=== PATIENT | female | born 1975 | race Caucasian/White ===

== ENCOUNTER → 2016-06-13 | Outpatient (CLI) | payer OTHER ==
--- NOTE | 2016-06-13 10:14 | DIAGNOSTIC IMAGING REPORT ---
PROCEDURE: US COMPLETE PELVIC W/TRANSVAG INDICATION: METRORRHAGIA, initial encounter TECHNIQUE: Transabdominal and endovaginal patino scale and color Doppler sonographic images of the female pelvis were obtained. COMPARISON: None. FINDINGS: TRANSABDOMINAL SCANS: Left adnexal cyst. Normal kidneys. TRANSVAGINAL SCANS: Retroverted uterus measures 9.6 x 5.1 x 5.7 cm. Normal myometrium. IUD in satisfactory position within the endometrial canal. Left ovary measures 3.7 x 2.7 x 3.2 cm with a 2.6 cm simple cyst. Right ovary measures 4.4 x 1.9 x 3.1 cm with a 3.3 cm simple cyst. No adnexal mass or free fluid the cul-de-sac. IMPRESSION: 1. IUD in satisfactory position 2. Bilateral simple ovarian cysts
== END ==
LOC: US SRH 09:00
DX: N92.1 Excessive and frequent menstruation with irregular cycle (principal); N83.202 Unspecified ovarian cyst, left side; N83.201 Unspecified ovarian cyst, right side; Z97.5 Presence of (intrauterine) contraceptive device